=== PATIENT | male | born 1950 | race Two or more races ===

== ENCOUNTER 2022-10-05 11:45 | Emergency (ER) | payer OTHER, SELFPAY ==
--- NOTE | ~2022-10-05 | CT_ITS ---
EXAMINATION: CT abdomen pelvis w IV con CLINICAL INFORMATION: Reason for Exam upper abdominal pain COMPARISON: No prior CT available for comparison. TECHNIQUE: Multidetector volumetric imaging was performed from the superior aspect of the liver through the pubic symphysis , noncontrasted study. Sagittal and coronal reformatted images were obtained on the technologist's workstation. This CT examination was performed using dose optimization techniques as appropriate, variously including the following: *Automated exposure control *Adjustment of mA and/or kV according to patient size (this includes techniques or standardized protocols for targeted exams where dose is matched to indication/reason for exam; i.e. extremities or head) *Use of iterative reconstruction technique DLP: 419 mGy-cm FINDINGS: LOWER THORAX: There is peripheral pleural-based 1.2 cm density lingula image 1 series 6, probably not fully included on this CT abdomen. Remainder of the lungs otherwise are clear. HEPATOBILIARY: No focal hepatic lesions. No biliary ductal dilatation. GALLBLADDER: Gallbladder unremarkable. SPLEEN: Spleen is normal in size. PANCREAS: No focal mass or ductal dilatation. STOMACH AND GASTROINTESTINAL TRACT: Stomach is grossly unremarkable. There is no bowel distention or thickening. No CT evidence of appendicitis. Mild circumferential wall thickening of the distal sigmoid colon/rectum, nonspecific, could be proctitis. Mild diverticulosis without evidence of acute diverticulitis. ADRENALS: No adrenal nodules. KIDNEYS/URETERS: No hydronephrosis, stones or solid mass lesions. URINARY BLADDER: Partially decompressed. PELVIC VISCERA: Enlarged prostate 4.7 x 5.7 x 5.5 cm protruding indenting on the bladder base. There are probably radiation seeds within the prostate. PERITONEUM: No free air or fluid. LYMPH NODES: No lymphadenopathy. VASCULAR:Abdominal aorta normal in size, no aneurysm found. BONES, ABDOMINAL WALL AND SOFT TISSUES: Tiny sclerotic density in the right femoral head probably bone island. Degenerative changes of the lumbar spine. Age-appropriate changes of the spine and skeletal system, no destructive osteolytic or osteosclerotic bone lesion found CT/CT abdomen pelvis w IV con IMPRESSION: -Partially included 1.2 CM LUNG NODULE lingula, image 1 series 6, given its size would recommend correlation with follow-up chest CT. - Mild circumferential wall thickening of the distal sigmoid colon/rectum, nonspecific, could be proctitis. - Enlarged prostate protruding indenting on the bladder base. - Tiny sclerotic density in the right femoral head probably bone island. Diverticulosis without evidence of acute diverticulitis. (Referring physician staff is being called, by physician staff assistance, to be alerted of the above critical findings and recommendations.) Claire Romero 10/05/2022 2:06 PM
[2022-10-05 11:53] VITALS: BP 183/73; PULSE 73; RESP 18; TEMP 36.4; O2SAT 96; BMI 23.6
--- NOTE | 2022-10-05 11:53 | ED_ITS ---
HPI - Abdominal Pain General Chief Complaint: Abdominal Pain Stated Complaint: abd pain Time Seen by Provider: 10/05/22 12:04 Source: patient Mode of arrival: ambulatory Limitations: no limitations History of Present Illness HPI narrative: This is a very pleasant 71 years old male with history of prostate cancer in the past status post radiation, history of appendectomy, presented to emergency department complaining of upper abdominal pain ongoing for about 2 weeks he denies any nausea vomiting diarrhea. Denies also fever. MD elicited complaint: abdominal pain Pertinent past history: other (prostate ca) Onset (ago): week(s) (2) Pain Consistency: constant Location: epigastric Quality: aching Relieving factors: eating Associated symptoms: denies other symptoms Related Data Previous Rx's Medication Instructions Recorded pantoprazole 40 mg tablet,delayed 40 mg PO DAILY #30 tabs 10/05/22 release (Protonix) Allergies Allergy/AdvReac Type Severity Reaction Status Date / Time No Known Allergies Allergy Verified 10/05/22 11:57 Review of Systems Reports system reviewed and no additional complaints, except as documented Cardiovascular: Reports no additional cardiovascular complaints Respiratory: Reports no additional respiratory complaints Gastrointestinal: Reports abdominal pain Psychiatric: Reports no additional psychiatric complaints PMFSH Social History Social History Alcohol intake: never Smoked in Last 30 Days: No Use of substances other than those prescribed or required for medical reasons: No Advance Directives: No Physical Exam ED Vital Signs: Vital Signs - 24 hr 10/05/22 11:53 10/05/22 12:41 10/05/22 14:24 Temperature 97.5 F 97.9 F Pulse Rate 73 63 75 Respiratory Rate 18 16 16 Blood Pressure 183/73 H 172/79 H 170/87 H Pulse Oximetry 96 100 98 Oxygen Delivery Method Room Air Room Air Room Air BMI result Body Mass Index 23.6 Const General: cooperative Nutritional Appearance: well nourished Orientation/consciousness: patient oriented x3 Limitations: no limitations HENMT Head: Yes normal to inspection Mouth: Normal oral and palatal mucosa present Neck Neck: Yes normal visual inspection Chest Chest palpation & inspection: normal inspection of the chest Resp Effort & Inspection: normal respiratory effort Auscultation: clear to auscultation bilaterally Cardio Jugular venous distension: no JVD Rate: regular rate Rhythm: regular rhythm GI Inspection: Yes normal to inspection Palpation (GI): Soft to palpation, not firm, nontender, no guarding and not rigid Auscultation: normal bowel sounds Skin General skin exam: no rashes or lesions noted Lesions: no lesions Rashes: no rashes Neuro General: patient oriented x3 Cranial nerves: Yes CN's II-XII intact bilaterally Cognition (Neuro): normal cognition Course Course Course Narrative: This is an RME: Additional HPI, ROS, PE not included below will be deferred to primary provider. Patient is a 71-year-old male presents emergency department for evaluation of abdominal pain, onset was approximately 1 week ago but progressively worsening. Primarily mid abdominal pain that radiates diffusely throughout, pain is actually alleviated after eating, dark stools x2 weeks he denies use of anticoagulants. Denies nausea, vomiting, fevers, chills, anorexia. Plan: Serum labs, trial GI cocktail Medical Decision Making Medical Decision Making [facility] Narrative: Patient presented with upper abdominal pain will obtain imaging labs and reassess @15.30 is feeling better is not toxic-appearing CT scan showed possible of proctitis but the pain is more epigastric, I discharge the patient on Protonix. Also there is an nodule in the lungs I explained did the patient will need a CT chest for follow-up I gave him a copy of the report Differential Diagnosis Differential Diagnoses: The differential diagnosis associated with the presentation includes Pancreatitis/cholecystitis/gastritis/peptic ulcer disease Admission/Observation Consideration of admission/observation: Escalation of care including admission/observation considered Lab Data [facility] Lab Attestation statement: I reviewed the patient's lab results. 10/05/22 12:07 10/05/22 12:07 Labs: Lab Results 10/05/22 10/05/22 Range/Units 12:07 12:07 WBC 6.0 (4.8-10.8) X10*3/uL RBC 5.10 (4.60-5.80) X10*6/uL Hgb 15.0 (14.0-18.0) g/dl Hct 43.1 (42.0-52.0) % MCV 84.5 (80.0-98.0) fL MCH 29.4 (27.0-33.0) pg MCHC 34.8 (31.0-36.0) g/dl RDW 12.5 (11.0-16.0) % Plt Count 202 (160-400) X10*3/uL MPV 8.8 L (9.4-12.4) fL Immature Gran % (Auto) 0.5 H (0.0-0.4) % Neut % (Auto) 57.4 (45-73) % Lymph % (Auto) 31.2 (20-40) % [place] % (Auto) 9.1 (2-11) % Eos % (Auto) 1.5 (0-4) % Baso % (Auto) 0.3 (0-2) % Lymph # (Auto) 1.9 (1.2-4.9) X10*3/uL [place] # (Auto) 0.6 (0.1-1.2) X10*3/uL Eos # (Auto) 0.1 (0.0-0.4) X10*3/uL Baso # (Auto) 0.0 (0.0-0.2) X10*3/uL Abs Immat Gran (auto) 0.03 (0.00-0.03) X10*3/uL Absolute Neuts (auto) 3.5 (2.0-8.3) x10*3/uL Absolute Nucleated RBC 0.000 (0.0-0.012) X10*3/uL Nucleated RBC % (auto) 0.0 (0.0-0.2) /100WBC Sodium 135 (135-145) mmol/L Potassium 4.2 (3.3-5.1) mmol/L Chloride 102 (96-108) mmol/L Carbon Dioxide 28 (22-29) mmol/L Anion Gap 9 L (12-20) BUN 15 (9-16) mg/dL Creatinine 1.00 (0.5-1.4) mg/dL Estim Creat Clear Calc 62.9 Estimated GFR > 60 Random Glucose 334 H (60-115) mg/dL Calcium 9.9 (8.4-10.2) mg/dL Total Bilirubin 0.7 (0.0-1.0) mg/dL AST 22 (5-37) U/L ALT 24 (0-40) U/L Alkaline Phosphatase 79 (39-117) U/L Total Protein 7.0 (6.5-8.0) g/dL Albumin 4.0 (3.5-5.0) g/dL Lipase 68 (8-78) U/L Independent Interpretation I performed an independent interpretation of an: CT Scan Radiology Impression Discussion of test interpretation with radiology: I have reviewed the radiologis t's reading. Medications Administered Discontinued Medications Generic Name Dose Route Start Last Admin Trade Name Matthewq PRN Reason Stop Dose Admin Al Hydroxide/Mg Hydroxide 30 ml 10/05/22 11:56 10/05/22 12:02 Magnesium Hydrox/Alum Hydrox 30 Ml Oral.Susp PO 10/05/22 11:57 30 ml ONCE ONE Administration Famotidine 20 mg 10/05/22 11:56 10/05/22 12:02 Famotidine 20 Mg Tablet PO 10/05/22 11:57 20 mg ONCE ONE Administration Iohexol 85 ml 10/05/22 13:26 10/05/22 13:27 Iohexol 350 Mg/Ml 100 Ml Infus..Btl IV 10/05/22 13:27 85 ml ONCE ONE Administration Discharge Plan Discharge Clinical Impression: Abdominal pain Patient Disposition: Home, Self-Care Instructions: Abdominal Pain (ED) Additional Instructions: Follow-up with your primary care physician as we discussed they detected a little spot in the lungs you will need a CT scan of the chest for follow-up we gave you a copy of ct report as well Prescriptions: New pantoprazole [Protonix] 40 mg tablet,delayed release (DR/EC) 40 mg PO DAILY Qty: 30 0RF
[2022-10-05] MEDS: Famotidine 20 MG TABLET PO (12:02)
[2022-10-05] MEDS: Magnesium Hydrox/Alum Hydrox 30 ML ORAL.SUSP PO (12:02)
[2022-10-05 12:12] LABS: MANUAL DIFF FLAG NO
[2022-10-05 12:14] LABS: Basophils Percent Auto 0.3 % (0-2); Eosinophils Absolute Auto 0.1 X10*3/uL (0.0-0.4); Eosinophils Percent Auto 1.5 % (0-4); Hematocrit 43.1 % (42.0-52.0); Imm Gran Abs Auto 0.03 X10*3/uL (0.00-0.03); Imm Gran Pct Auto 0.5 % (0.0-0.4); Lymphocytes Absolute Auto 1.9 X10*3/uL (1.2-4.9); Lymphocytes Percent Auto 31.2 % (20-40); Mean Corpuscular HGB Conc 34.8 g/dl (31.0-36.0); Mean Corpuscular Hemoglobin 29.4 pg (27.0-33.0); Mean Corpuscular Volume 84.5 fL (80.0-98.0); Mean Platelet Volume 8.8 fL (9.4-12.4); Monocytes Absolute Auto 0.6 X10*3/uL (0.1-1.2); Monocytes Percent Auto 9.1 % (2-11); Neutrophils Absolute Auto 3.5 x10*3/uL (2.0-8.3); Neutrophils Percent Auto 57.4 % (45-73); Platelet Count 202 X10*3/uL (160-400); Red Cell Distribution Width 12.5 % (11.0-16.0)
--- NOTE | 2022-10-05 12:23 | PC.NURSE ---
Patient alert and oriented. Arrived from home with complaints of abdominal pain that extends to left and right flank. Reports that about 2 months ago he started having right sided shoulder pain. states about 2 weeks ago that pain moved to his abdomen. Dennys is worse at rest and improves with movement. Reports hx of prostate cancer that was treated with radiation in 2018. Denies chest pain, sob, or headache.
[2022-10-05 12:27] LABS: Alanine Aminotransferase 24 U/L (0-40); Alkaline Phosphatase 79 U/L (39-117); Anion Gap 9 (12-20); Aspartate Amino Transferase 22 U/L (5-37); Bilirubin Total 0.7 mg/dL (0.0-1.0); Blood Urea Nitrogen 15 mg/dL (9-16); Calcium 9.9 mg/dL (8.4-10.2); Carbon Dioxide 28 mmol/L (22-29); Chloride 102 mmol/L (96-108); Creatinine Clr Calc Pharmacy 62.9; Estimated Glomerular Filt Rate > 60; Glucose Random 334 mg/dL (60-115); Lipase 68 U/L (8-78); Potassium 4.2 mmol/L (3.3-5.1); Sodium 135 mmol/L (135-145)
[2022-10-05 12:41] VITALS: BP 172/79; PULSE 63; RESP 16; TEMP 36.6; O2SAT 100
[2022-10-05] MEDS: iohexoL 350 MG/ML 100 ML INFUS..BTL 85 ML IV (13:27)
[2022-10-05 14:24] VITALS: BP 170/87; PULSE 75; RESP 16; O2SAT 98
[2022-10-05 16:00] VITALS: BP 118/89; PULSE 69; RESP 16; TEMP 36.4; O2SAT 98
== END 2022-10-05 16:13 | disposition home or self-care (01) ==
PROVIDERS: Nurse Practitioner Family; Emergency Provider Emergency Medicine
DX: R10.10 Upper abdominal pain, unspecified (principal); Z85.46 Personal history of malignant neoplasm of prostate
CPT/HCPCS: 36415; 74177; 80053; 83690; 85025; 99284; Q9967